=== PATIENT | female | born 1995 ===

== ENCOUNTER 2021-04-22 13:39 | Emergency (ER) | payer SELFPAY ==
[2021-04-22 21:47] LABS: SARS-CoV-2 PCR by NAA Not Detected (NotDetected)
== END 2021-04-22 16:38 | disposition home or self-care (01) ==
LOC: ERS 13:39
DX: K52.9 Noninfective gastroenteritis and colitis, unspecified (principal); Z20.822 Contact with and (suspected) exposure to COVID-19
CPT/HCPCS: 99284; U0003; U0005